=== PATIENT | female | born 1980 | race Caucasian/White ===

== ENCOUNTER 2022-11-26 08:11 | Outpatient (CLI) | payer OTHER, SELFPAY ==
[2022-11-26 13:40] LABS: Basophils Absolute Auto 0.03 K/uL (0.00-0.30); Basophils Percent Auto 0.4 % (0.0-3.0); Eosinophils Absolute Auto 0.26 K/uL (0.00-0.50); Eosinophils Percent Auto 3.5 % (0.0-7.0); Hematocrit 44.4 % (33.0-51.0); Hemoglobin* 15.2 gm/dL (12.0-16.0); Immature Granulocytes Abs Auto 0.01 K/uL (0.00-0.30); Immature Granulocytes Pct Auto 0.1 %; Lymphocytes Absolute Auto 2.16 K/uL (0.90-2.90); Lymphocytes Percent Auto 29.3 % (20-44); Mean Corpuscular HGB Conc 34 gm/dL (32-36); Mean Corpuscular Hemoglobin 32 pg (26-34); Mean Corpuscular Volume 93 fL (80-100); Monocytes Percent Auto 5.8 % (0.0-11.0); Neutrophils Absolute Auto 4.48 K/uL (1.7-7.0); Neutrophils Percent Auto 60.9 % (42.0-72.0); Platelet Count* 385 K/uL (140-440); RDW Coefficient of Variation % 11.5 % (11.5-15.5); Red Blood Count 4.77 m/uL (4.00-5.20); White Blood Count* 7.37 K/uL (4.50-11.00)
[2022-11-26 13:46] LABS: Slide Review Reflex No
[2022-11-26 14:06] LABS: Albumin* 4.4 g/dL (3.3-5.0); Chloride* 106 mmol/L (96-114)
[2022-11-26 14:07] LABS: Potassium* 4.5 mmol/L (3.6-5.1); Sodium* 140 mmol/L (135-149)
[2022-11-26 14:09] LABS: Aspartate Amino Transferase* 33 U/L (12-35); Bilirubin Total* 0.5 mg/dL (0.1-1.5); Carbon Dioxide* 25 mmol/L (20-32); Cholesterol* 248 mg/dL (90-199); Creatinine* 0.6 mg/dL (0.5-1.5); Estimated Glomerular Filt Rate 114 ml/min; Total Protein* 7.2 g/dL (6.0-8.3)
[2022-11-26 14:10] LABS: Alanine Aminotransferase* 31 U/L (4-35); Alkaline Phosphatase* 58 U/L (40-150); Blood Urea Nitrogen* 14 mg/dL (5-24); Calcium* 9.5 mg/dL (8.4-10.6); Glucose* 108 mg/dL (60-115); HDL Cholesterol* 39 mg/dL (>=50); LDL Cholesterol Calculated 143 mg/dL (<100); Triglycerides* 332 mg/dL (40-149)
== END 2022-11-26 08:12 | disposition home or self-care (01) ==
PROVIDERS: PCP Family Medicine; Visit Provider Family Medicine
DX: E78.5 Hyperlipidemia, unspecified (principal); D68.2 Hereditary deficiency of other clotting factors; E66.9 Obesity, unspecified; I10 Essential (primary) hypertension
CPT/HCPCS: 80053; 80061; 85025

== ENCOUNTER 2023-02-11 13:15 | Outpatient (CLI) | payer OTHER, SELFPAY ==
--- NOTE | 2023-02-11 13:40 | CRLHL7_ITS ---
For Patients: As a result of the Cures Act, medical imaging exams and procedure reports are released immediately into your electronic medical record. You may view this report before your referring provider. If you have questions, please contact your health care provider. BILATERAL DIGITAL SCREENING MAMMOGRAM WITH COMPUTER-AIDED DETECTION CLINICAL HISTORY: Routine screening exam. COMPARISON: None. TECHNIQUE: Digital mammogram in CC and MLO projections including computer-aided detection (CAD). BREAST COMPOSITION: The breasts are heterogeneously dense, which may obscure small masses. FINDINGS: RIGHT Breast: No suspicious findings LEFT Breast: Focal asymmetric density lateral aspect 3 o`clock 9 cm from the nipple. IMPRESSION: LEFT breast asymmetry/mass. RECOMMENDATIONS: Additional mammographic views of the LEFT breast including 3D spot compression CC/MLO. LEFT breast ultrasound may also be required. BI-RADS Category 0: Incomplete: Need Additional Imaging Evaluation and/or Prior Mammograms for Comparison [facility] will contact the patient for follow-up. A lay language report of this examination will be provided to the patient. Dictated by Napoleon Nix MD @ 02/12/2023 11:21:06 AM jj/Dictated by: Napoleon Nix MD @ 02/12/2023 11:21:00 AM (Electronically Signed)
== END 2023-02-11 13:16 | disposition home or self-care (01) ==
LOC: MAMMO 13:17
PROVIDERS: PCP Family Medicine; Visit Provider Family Medicine
DX: Z12.31 Encounter for screening mammogram for malignant neoplasm of breast (principal)
CPT/HCPCS: 77067

== ENCOUNTER 2023-02-21 10:26 | Outpatient (CLI) | payer OTHER, SELFPAY ==
--- NOTE | 2023-02-21 10:45 | CRLHL7_ITS ---
For Patients: As a result of the Cures Act, medical imaging exams and procedure reports are released immediately into your electronic medical record. You may view this report before your referring provider. If you have questions, please contact your health care provider. DIGITAL DIAGNOSTIC LEFT MAMMOGRAM USING TOMOSYNTHESIS AND COMPUTER-AIDED DETECTION LEFT BREAST ULTRASOUND CLINICAL HISTORY: LEFT breast mass/asymmetry. COMPARISON: 02/11/2023. TECHNIQUE: Digital LEFT mammogram in two projections. Tomosynthesis and CAD utilized. Real-time ultrasound imaging of LEFT breast with imaging documentation. BREAST COMPOSITION: The breast is heterogeneously dense, which may obscure small masses. FINDINGS: 3D spot compression CC/MLO LEFT breast mammogram images submitted. Decreased conspicuity of previously noted asymmetric density. No architectural distortion or suspicious calcifications. Targeted LEFT breast ultrasound performed in the lower outer quadrant 8 cm from the nipple. Normal dense fibroglandular tissue is present. No suspicious masses or fibrocystic change. IMPRESSION: Normal additional mammographic images and normal targeted ultrasound LEFT breast. No evidence of malignancy. RECOMMENDATIONS: Annual BILATERAL screening mammography. Results and recommendations discussed with the patient. BI-RADS Category 2: Benign A lay language report of this examination will be provided to the patient. Dictated by Napoleon Nix MD @ 02/21/2023 1:13:50 PM jj/Dictated by: Napoleon Nix MD @ 02/21/2023 1:13:00 PM (Electronically Signed)
--- NOTE | 2023-02-21 11:15 | CRLHL7_ITS ---
For Patients: As a result of the Cures Act, medical imaging exams and procedure reports are released immediately into your electronic medical record. You may view this report before your referring provider. If you have questions, please contact your health care provider. PLEASE SEE DIGITAL DIAGNOSTIC LEFT MAMMOGRAM PERFORMED SAME DAY CRL:[email or web address]/Dictated by: Napoleon Nix MD @ 02/21/2023 1:13:00 PM (Electronically Signed)
== END 2023-02-21 10:27 | disposition home or self-care (01) ==
LOC: MAMMO 10:27
PROVIDERS: PCP Family Medicine; Visit Provider Family Medicine
DX: N63.20 Unspecified lump in the left breast, unspecified quadrant (principal); R92.8 Other abnormal and inconclusive findings on diagnostic imaging of breast
CPT/HCPCS: 76642; 77065; G0279

== ENCOUNTER 2023-07-01 15:52 | Outpatient (CLI) | payer OTHER, SELFPAY | END 2023-07-01 15:53 | disposition home or self-care (01) | PROVIDERS: PCP Family Medicine; Visit Provider Family Medicine | DX: I10 Essential (primary) hypertension (principal); E78.5 Hyperlipidemia, unspecified; E66.9 Obesity, unspecified; D68.2 Hereditary deficiency of other clotting factors; F41.9 Anxiety disorder, unspecified | CPT/HCPCS: 80053; 82306; 83001; 84443 ==

== ENCOUNTER 2024-02-02 08:43 | Outpatient (CLI) | payer OTHER, SELFPAY | END 2024-02-02 08:44 | disposition home or self-care (01) | PROVIDERS: PCP Family Medicine; Visit Provider Family Medicine | DX: Z00.00 Encounter for general adult medical examination without abnormal findings (principal); I10 Essential (primary) hypertension; E78.5 Hyperlipidemia, unspecified; M81.0 Age-related osteoporosis without current pathological fracture; R79.89 Other specified abnormal findings of blood chemistry; F41.9 Anxiety disorder, unspecified; E66.9 Obesity, unspecified; D68.2 Hereditary deficiency of other clotting factors | CPT/HCPCS: 80061; 82306 ==

== ENCOUNTER 2024-05-03 08:05 | Outpatient (CLI) | payer OTHER, SELFPAY | END 2024-05-03 08:06 | disposition home or self-care (01) | LOC: NFLDREF 05-05 05:52 | PROVIDERS: PCP Family Medicine; Referring Provider Family Medicine; Visit Provider Family Medicine | DX: R79.89 Other specified abnormal findings of blood chemistry (principal); M81.0 Age-related osteoporosis without current pathological fracture; E66.9 Obesity, unspecified; I10 Essential (primary) hypertension; F41.9 Anxiety disorder, unspecified; D68.2 Hereditary deficiency of other clotting factors | CPT/HCPCS: 80053; 82306 ==

== ENCOUNTER 2024-11-12 13:41 | Outpatient (CLI) | payer OTHER, SELFPAY | END 2024-11-12 13:42 | disposition home or self-care (01) | PROVIDERS: PCP Family Medicine; Visit Provider Obstetrics & Gynecology | DX: F41.9 Anxiety disorder, unspecified (principal); R23.2 Flushing | CPT/HCPCS: 83001; 84443 ==

== ENCOUNTER 2025-01-10 08:06 | Outpatient (CLI) | payer OTHER, SELFPAY | END 2025-01-10 08:07 | disposition home or self-care (01) | LOC: NFLDREF 01-11 00:28 | PROVIDERS: PCP Family Medicine; Referring Provider Family Medicine; Visit Provider Family Medicine | DX: I10 Essential (primary) hypertension (principal); E78.5 Hyperlipidemia, unspecified; R79.89 Other specified abnormal findings of blood chemistry; R73.9 Hyperglycemia, unspecified; M81.0 Age-related osteoporosis without current pathological fracture | CPT/HCPCS: 80053; 80061; 82306 ==

== ENCOUNTER 2025-10-12 15:01 | Outpatient (CLI) | payer OTHER, SELFPAY ==
--- NOTE | 2025-10-12 15:20 | CRLHL7_ITS ---
For Patients: As a result of the Century Cures Act, medical imaging exams and procedure reports are released immediately into your electronic medical record. You may view this report before your referring provider. If you have questions, please contact your health care provider. INDICATION: BILATERAL SCREENING MAMMOGRAM, ASYMPTOMATIC 45 Y/O FEMALE COMPARISON: 02/21/2023, 02/11/2023, 12/25/2021 TECHNIQUE: Digital mammogram in CC and MLO projections including computer-aided detection (CAD) and tomosynthesis. BREAST COMPOSITION: The breasts are heterogeneously dense, which may obscure small masses. FINDINGS: No suspicious findings. ASSESSMENT: BI-RADS 2 Benign RECOMMENDATION: Annual screening mammogram. A lay language report of this examination will be provided to the patient. Dictated by: Napoleon Nix MD @ 10/13/2025 09:57:07 (Electronically Signed)
== END 2025-10-12 15:02 | disposition home or self-care (01) ==
LOC: MAMMO 15:02
PROVIDERS: PCP Family Medicine; Visit Provider Nurse Practitioner Family
DX: Z12.31 Encounter for screening mammogram for malignant neoplasm of breast (principal); R92.333 Mammographic heterogeneous density, bilateral breasts
CPT/HCPCS: 77063; 77067